=== PATIENT | male | born 1995 | race Hispanic/Latino ===

== ENCOUNTER 2018-07-21 18:59 | Emergency (ER) | payer SELFPAY ==
[2018-07-21 19:28] LABS: Bilirubin Negative (Negative); Blood, Urine Negative (Negative); Clarity CLEAR (Clear); Glucose, Urine (Dipstick) Negative (Negative); Leukocyte Negative (Negative); Nitrite Negative (Negative); Protein, Urine (Dipstick) Negative (Neg-Trace); Specific Gravity, Urine 1.025 (1.002-1.036)
[2018-07-21 19:45] LABS: #Basophils 0.1 thou/uL (0.0-0.2); #Eosinphils 0.1 thou/uL (0.0-0.7); #Lymphocytes 2.8 thou/uL (1.20-3.40); #Monocytes 0.5 thou/uL (0.11-0.59); #Neutrophils 3.2 thou/uL (1.40-6.50); %Basophils 0.9 % (0.0-1.0); %Lymphocytes 41.1 % (21.0-51.0); %Monocytes 7.8 % (0.0-10.0); %Neutrophils 48.2 % (42.0-75.0); Hemoglobin 16.6 g/dL (14.0-18.0); Mean Corpuscular HGB CONC 34.2 g/dL (32.0-36.0); Mean Corpuscular Hemoglobin 31.8 pg (27.0-31.0); Mean Corpuscular Volume 93.1 fL (78.0-98.0); Mean Platelet Volume 7.6 fL (7.4-10.4); Platelet Count 250 thou/uL (130-400); RBC Distribution Width 11.8 % (11.5-14.5); Red Blood Cell (RBC) Count 5.21 mill/uL (4.70-6.10); White Blood Cell (WBC) Count 6.7 thou/uL (4.8-10.8)
[2018-07-21 20:09] LABS: ALT (SGPT) 14 U/L (8-55); AST (SGOT) 14 U/L (5-34); Albumin 4.7 g/dL (3.5-5.0); Alkaline Phosphatase 70 U/L (40-150); Anion Gap 11 mmol/L (10-20); BUN (Urea Nitrogen) 7 mg/dL (8.9-20.6); Bilirubin, Total 0.4 mg/dL (0.2-1.2); Calc. Creatinine Clearance 0 mL/min (70-130); Calcium 9.7 mg/dL (7.8-10.44); Carbon Dioxide 28 mmol/L (22-29); Chloride 103 mmol/L (98-107); Estimated GFR-MDRD 87; Globulin 3.8 g/dL (2.4-3.5); Glucose 98 mg/dL (70-105); Potassium 3.9 mmol/L (3.5-5.1); Protein, Total 8.5 g/dL (6.0-8.3); Sodium 138 mmol/L (136-145)
--- NOTE | 2018-07-21 20:55 | ULT ---
SONOGRAM RIGHT UPPER QUADRANT: 07/21/18 HISTORY: Right upper quadrant pain. FINDINGS: Patient was reportedly tender over the gallbladder fossa at the time of the exam. Small amount of non shadowing echogenic sludge. Small amount of pericholecystic fluid. Gallbladder is distended but not o niyah dilated. Common duct is 0.3 cm. Liver unremarkable without focal mass or intrahepatic biliary dil atation. IMPRESSION: Small amount of biliary sludge. Findings of acute cholecystitis includes small amount of pericholecys tic fluid and positive sonographic Ayala's sign. Clinical correlation regarding other signs and symptoms of acute cholecystitis is required. POS: DAVID
[2018-07-21] MEDS ORDERED: Ketorolac Tromethamine 30 MG/ML VIAL ONE (22:34)
[2018-07-21] MEDS ORDERED: Ibuprofen 800 MG TAB ONE (22:38)
== END 2018-07-21 23:05 | disposition home or self-care (01) ==
LOC: ERS 18:59
DX: K81.0 Acute cholecystitis (principal); K21.9 Gastro-esophageal reflux disease without esophagitis; F17.210 Nicotine dependence, cigarettes, uncomplicated
CPT/HCPCS: 36415; 76705; 80053; 81003; 85025; J1885

== ENCOUNTER 2018-07-30 08:08 | Day surgery (SDC) | payer BC ==
[2018-07-30] MEDS ORDERED: Levofloxacin 500 mg/D5W 100 ml Premix Bag ONE (08:53)
[2018-07-30] MEDS ORDERED: Ketorolac Tromethamine 30 MG/ML VIAL ONE (08:53)
--- NOTE | 2018-07-30 09:30 | HP ---
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 He has been experiencing epigastric pain, nausea, and vomiting, especiall y after fatty food intake. His primary care physician is Dr. Goddard at [facility] discovered him to have H. pylori and treated him for this and he continues to have these symptoms along with right upper quadrant pain. He has not had any burning pain in his chest. His symptoms have all been epiga stric, right upper quadrant pain, flank radiation, and right mid back radiation. He presented to [facility] emergency room 07/21/2018. Dr. Alon Rosario saw him. Ultrasound revealed biliary sludge, positiv e sonographic Ayala sign with pericholecystic fluid. CBC, comprehensive metabolic profile and liver function tests were normal. ALLERGIES: None. TOBACCO: None. ALCOHOL: Occasionally. MEDICATIONS: PPIs, ranitidine, he started recently. PAST SURGICAL HISTORY: Pectus excavatum with a correcting joy placed in high school, removed about a year and a half ago. PAST MEDICAL HISTORY: Noncontributory. REVIEW OF SYSTEMS/FAMILY HISTORY: Noncontributory. PHYSICAL EXAMINATION: VITAL SIGNS: Weight 175 pounds, 77 kilograms, 6 feet 0 inches, 130/77, 76, 98.4 degrees. HEENT: Unremarkable. LUNGS: Clear to auscultation. CARDIAC: Regular rate and rhythm without murmur or gallop. ABDOMEN: Soft. Mild tenderness in right upper quadrant and right lower quadrant. EXTREMITIES: Unremarkable. ASSESSMENT AND PLAN: 1. Cholecystitis and cholelithiasis. I have recommended laparoscopic video cholecystectomy. Risk o f infection, bleeding, visceral and biliary injury explained and he consents. We will plan this lila rrow as an outpatient. Questions answered. 2. History of H. pylori, treated. He has never had any burning chest pain. I think his symptoms ar e biliary in nature. He will stop his PPI postoperatively.
[2018-07-30] MEDS ORDERED: Bupivacaine HCl 0.5%/Epinephrine 1:200,000/PF 30 ml Vial ONE (12:08)
[2018-07-30] MEDS ORDERED: Fentanyl 100 MCG/2 ML VIAL ONE ×2 (12:18→14:11)
[2018-07-30] MEDS ORDERED: Glycopyrrolate 0.2 MG/ML 5 ML SYRINGE ONE (13:39)
[2018-07-30] MEDS ORDERED: Ondansetron PF 4 MG/2 ML Vial ONE (13:39)
[2018-07-30] MEDS ORDERED: Dexamethasone 20 MG/5 ML VIAL ONE (13:39)
[2018-07-30] MEDS ORDERED: PROPOFOL 200 MG/20 ML VIAL ONE (13:39)
[2018-07-30] MEDS ORDERED: Lidocaine 1% PF 5 ML VIAL ONE (13:39)
[2018-07-30] MEDS ORDERED: Meperidine HCl/PF 25 MG/ML VIAL ONE (13:50)
--- NOTE | 2018-07-30 13:58 | OP ---
DATE OF PROCEDURE: 07/30/2018 PREOPERATIVE DIAGNOSES: Cholecystitis, cholelithiasis. POSTOPERATIVE DIAGNOSES: Cholecystitis, cholelithiasis, possible early appendicitis. PROCEDURE: Laparoscopic video cholecystectomy, laparoscopic video appendectomy. SURGEON: Lucas Epperson M.D. ANESTHESIA: General. Local 0.5% Marcaine with epinephrine. INDICATIONS: Mr. Hope presents with typical biliary symptoms, but on evaluation was noted to have so me right lower quadrant tenderness. Discussion preoperatively held regarding possibility appendectomy, which he requested if indicated. Findings at operation with a slightly firm mid appendix and appendectomy thus undertaken along with h is cholecystectomy. PROCEDURE: The patient was taken to the operating room where under general anesthesia, abdomen was c lipped of hair, prepared with ChloraPrep, draped in routine fashion. Local anesthetic 0.5% Marcaine with epinephrine, 30 mL infiltrated in skin and subcutaneous tissue about each port site. Infraumbil ical incision made. Pneumoperitoneum to 15 mmHg obtained with the Veress needle, replacing it with a 5 port and laparoscope inserted. Right subxiphoid incision made and 11 port placed, later exchanged for a 12 port in right subcostal incision made mid clavicular axillary lines and 5 ports placed. Li niyah appeared to be normal. Gallbladder grossly normal. Gallbladder fundus grasped and reflected cep halad. Infundibulum grasped laterally. Cystic artery and duct dissected free. Critical view obtain ed. Cystic artery and duct doubly clipped proximally, divided, and gallbladder dissected free from t he liver bed obtaining good hemostasis prior to division of final peritoneal attachments. Gallbladde r and contents removed and submitted to Pathology. Good hemostasis ensured with the cautery. Attention turned towards visualization of the appendix were in the mid appendix it was slightly enlar ged and firm. Laparoscopic appendectomy undertaken as discussed preoperatively with the patient and his fiancee. Mesoappendix taken down with the ligatures. The stump of the appendix divided cecal st ump with an Endo stapler blue load. Stapled cecal stump hemostasis gained with clips as the appendix removed and submitted to Pathology. Good hemostasis ensured. Irrigant and pneumoperitoneum evacuat ed. All instruments removed and subxiphoid fascia approximated with 0 Vicryl suture [id number] and all skin incisions approximated with interrupted subdermal 4-0 Monocryl and DermaGlue applied.
[2018-07-30] MEDS ORDERED: HYDROcodone/Acetaminophen 5/325 mg Tablet ONE ×2 (15:16→15:30)
== END 2018-07-30 16:00 | disposition home or self-care (01) ==
LOC: SDC 08:08
PROVIDERS: ATTEND Specialist
PROC: 0FT44ZZ Resection of Gallbladder, Percutaneous Endoscopic Approach (ICD-10-PCS; principal; 2018-07-30)
PROC: 0DTJ4ZZ Resection of Appendix, Percutaneous Endoscopic Approach (ICD-10-PCS; principal; 2018-07-30)
DX: K81.1 Chronic cholecystitis (principal)
CPT/HCPCS: 88304; 96374; J0131; J0670; J1610; J1885; J1956; J2175; J3010